=== PATIENT | male | born 1955 | race Caucasian/White ===

== ENCOUNTER 2023-06-27 12:34 | Outpatient (CLI) | payer MEDICARE, SELFPAY ==
--- NOTE | ~2023-06-27 | CT_ITS ---
CT Scan of the Chest without Contrast: Clinical Indication: Lung cancer screening, nicotine dependence Technique: Contiguous sections were acquired throughout the chest without intravenous contrast. Dose reduction technique was used on this scan by utilizing automated exposure control and iterative recon struction technique. The dose-length product (DLP) was 133.13 mGy-cm. Findings: There is no evidence of any significant mediastinal, hilar or axillary lymphadenopathy. Coronary laurel ry calcifications are present. There is no evidence of pleural or pericardial effusion. 7 mm nodule noted along the right minor fissure (axial image 56). 3 mm pleural-based nodule at the le ft lung base (axial image 95). Images through the upper abdomen reveal no abnormalities. Impression: Lung RADS 3: Probably benign. Six-month follow-up screening CT recommended. Reviewed, dictated and finalized at [facility]. Impression: Lung RADS 3: Probably benign. Six-month follow-up screening CT recommended.
== END 2023-06-27 12:35 | disposition home or self-care (01) ==
PROVIDERS: PCP Family Medicine; Visit Provider Family Medicine
DX: Z12.2 Encounter for screening for malignant neoplasm of respiratory organs (principal); Z87.891 Personal history of nicotine dependence
CPT/HCPCS: 71271

== ENCOUNTER 2024-08-12 00:29 | Day surgery (SDC) | payer MEDICARE, SELFPAY ==
[2024-08-04 09:49] VITALS: BMI 28.9
[2024-08-12 13:05] VITALS: BP 148/87; PULSE 57; RESP 15; TEMP 36.6; O2SAT 99
[2024-08-12] MEDS: LACTATED RINGERS 1,000 ML 150 ML IV CONT (13:12)
--- NOTE | 2024-08-12 13:46 | WPDANESEPPF ---
Anes - Initial Pre Proc Eval Procedure: Operation Date: 08/12/24 14:00 Proposed Procedures p Screening Colonoscopy - Dale Dave MD Date/Time: 08/12/24 13:46 Surgeon: Dale Dave MD Pre Op Diagnosis: Screening Patient Data Age: 69 Gender: M Height: 1.73 m Weight: 84.5 kg Last Vital Signs Temp 36.6 C 08/12/24 13:05 Pulse 57 L 08/12/24 13:05 Resp 15 08/12/24 13:05 BP 148/87 H 08/12/24 13:05 Pulse Ox 99 08/12/24 13:05 O2 Del Method Room Air 08/12/24 13:05 Allergies Allergy/AdvReac Type Severity Reaction Status Date / Time No Known Allergies Allergy Unknown Verified 08/12/24 13:01 Home Medications ?Medication ?Instructions ?Recorded ?Confirmed ?Type No Home Medications 08/12/24 08/12/24 History Patient hx anesthesia problems: none Family hx anesthesia problems: none Results Review: All pre-operative results and documents have been reviewed as part of the pre-operative evaluation. [facility] Past Medical History Medical History IFG (impaired fasting glucose) Acute appendicitis with perforation, localized peritonitis, and abscess, without gangrene Elevated blood-pressure reading, without diagnosis of hypertension Family history of colon cancer Pure hyperglyceridemia Umbilical hernia without obstruction or gangrene Surgical History Surgical History History of umbilical hernia repair Family History Family History Mother Carcinoma of colon Social History Social History Smoking packs per day: 0.5 Smoking cigarettes per day: 10.0 Smoking status: Current some day smoker Tobacco type: cigarettes Smoking end date: 03/11/16 Alcohol intake: current Substance use: never Substance use type: does not use Gender identity (if verbalized by the patient): Male Anes - Eval Final PreProcedure Day of Procedure 08/12/24 13:46 Patient weight: overweight Heart: regular rate and rhythm Lungs: clear to auscultation Airway: Mallampati scale class II Neurological: alert and oriented Last oral intake: >/= 8 hours ASA classification: II Emergent: no Anesthetic plan: proceed Anesthesia type and monitoring: general GIVS and standard monitoring Results Review: All pre-operative results and documents have been reviewed as part of the pre-operative evaluation. Informed Consent: The patient's anesthetic plan and its attendant risks and benefits were discussed with the patient/family/POA. Questions were solicited and answers provided to the satisfaction of the patient/family/POA.
--- NOTE | 2024-08-12 14:01 | P.HP_ITS ---
H&P: HPI History of Present Illness Date/Time: 08/12/24 14:01 Chief Complaint: Family history of colon cancer Narrative: This patient has family history of colorectal cancer. his mother had when she was in her late 60s Review of Systems Review of Systems: All systems reviewed & are unremarkable except as noted in HPI and below [facility] Past Medical History Medical History (Updated 08/12/24 @ 14:02 by Dale Dave MD) IFG (impaired fasting glucose) Acute appendicitis with perforation, localized peritonitis, and abscess, without gangrene Elevated blood-pressure reading, without diagnosis of hypertension Family history of colon cancer Pure hyperglyceridemia Umbilical hernia without obstruction or gangrene Surgical History Surgical History History of umbilical hernia repair Family History Family History Mother Carcinoma of colon Social History Social History Smoking packs per day: 0.5 Smoking cigarettes per day: 10.0 Smoking status: Current some day smoker Tobacco type: cigarettes Smoking end date: 03/11/16 Alcohol intake: current Substance use: never Substance use type: does not use Gender identity (if verbalized by the patient): Male Meds Home Medications and Allergies Home Medications ?Medication ?Instructions ?Recorded ?Confirmed ?Type No Home Medications 08/12/24 08/12/24 History Allergies Allergy/AdvReac Type Severity Reaction Status Date / Time No Known Allergies Allergy Unknown Verified 08/12/24 13:01 Vital Signs Vital Signs - 24 hr 08/12/24 13:05 Temperature 97.8 F Pulse Rate 57 L Respiratory Rate 15 Blood Pressure 148/87 H Pulse Oximetry 99 Oxygen Delivery Room Air Exam Const: General: cooperative and healthy appearing Resp: Effort & Inspection: normal respiratory effort and able to speak in complete sentences Auscultation: clear to auscultation bilaterally Cardio: Rate: regular rate Rhythm: regular rhythm GI: Inspection: normal to inspection GI Palp: No No hepatosplenomegaly present Auscultation: normal bowel sounds Rectal Exam: deferred Skin: General skin exam: normal color Psych: Appearance: grossly normal Mental Status: mental status grossly normal Assessment and Plan Assessment and plan (1) Family history of colon cancer: Code(s): Z80.0 - Family history of malignant neoplasm of digestive organs Status: Acute Assessment and Plan: The patient is deemed a good candidate for the procedure. Consent signed. Will proceed.
[2024-08-12] MEDS: SIMETHICONE ORAL SUSPENSION 20 MG/0.3 ML 30 ML BOTTLE 0.6 ML IRRIGATION (14:14)
[2024-08-12 14:25] VITALS: BP 131/85; PULSE 52; RESP 16; O2SAT 97
[2024-08-12 14:35] VITALS: BP 139/89; PULSE 56; RESP 19; O2SAT 99
[2024-08-12 14:45] VITALS: BP 152/89; PULSE 55; RESP 21; O2SAT 98
== END 2024-08-12 14:53 | disposition home or self-care (01) ==
PROVIDERS: PCP Family Medicine; Referring Provider Student in an Organized Health Care Education/Training Program; Visit Provider Internal Medicine Gastroenterology
PROC: 0DJD8ZZ Inspection of Lower Intestinal Tract, Via Natural or Artificial Opening Endoscopic (ICD-10-PCS; CPT 45378; principal; 2024-08-12 14:00)
DX: Z12.11 Encounter for screening for malignant neoplasm of colon (principal); R03.0 Elevated blood-pressure reading, without diagnosis of hypertension; E78.1 Pure hyperglyceridemia; F17.210 Nicotine dependence, cigarettes, uncomplicated; Z98.890 Other specified postprocedural states; Z80.0 Family history of malignant neoplasm of digestive organs
CPT/HCPCS: G0105; J2003; J2704; J7120

== ENCOUNTER 2024-09-02 17:53 | Emergency (ER) | payer MEDICARE, SELFPAY ==
[2024-09-02 18:02] VITALS: BP 147/80; PULSE 72; RESP 16; TEMP 36.8; O2SAT 98
--- NOTE | 2024-09-02 18:08 | ED_ITS ---
HPI - Ear Problem General Chief complaint: Ear Stated complaint: ear clog/jaw pain Time Seen by Provider: 09/02/24 18:07 Source: patient and RN notes reviewed Mode of arrival: ambulatory Limitations: no limitations History of Present Illness HPI Narrative: 69-year-old male presents with concern for an earache on the left side that is radiating down the left jaw. Reports he has been using ED bra straps, Q tips to try to improve it. He reports he has had decreased hearing in that ear. He denies cold symptoms. He reports some drainage from the ear. MD Complaint: ear pain Related Data Allergies Allergy/AdvReac Type Severity Reaction Status Date / Time No Known Allergies Allergy Unknown Verified 09/02/24 18:06 Review of Systems Review of Systems: CONSTITUTIONAL: Denies malaise, chills, sweats, or fever. EYES: Denies visual changes, redness, or discharge. ENT: Denies rhinorrhea, congestion, sinus pain, and sore throat. Reports left ear pain that radiates to the jaw CARDIOVASCULAR: Denies chest pain, palpitations, or edema. RESPIRATORY: Denies cough. Denies dyspnea. GASTROINTESTINAL: Denies abdominal pain, nausea, vomiting, diarrhea SKIN: Denies rash or itching. MUSCULOSKELETAL: Denies myalgia. NEUROLOGIC: Denies headache. All systems reviewed & are unremarkable except as noted in HPI and below PMFSH Past Medical History Medical History (Updated 09/02/24 @ 18:14 by Abby Malone NP) IFG (impaired fasting glucose) Acute appendicitis with perforation, localized peritonitis, and abscess, without gangrene Elevated blood-pressure reading, without diagnosis of hypertension Family history of colon cancer Pure hyperglyceridemia Umbilical hernia without obstruction or gangrene Surgical History Surgical History History of umbilical hernia repair Family History Family History Mother Carcinoma of colon Social History Social History Smoking packs per day: 0.5 Smoking cigarettes per day: 10.0 Years smoked: 45 Smoking pack-years: 22.50 Smoking status: Current some day smoker Tobacco type: cigarettes Smoking end date: 03/11/16 Alcohol intake: current Drinks per week: 10 Substance use: never Substance use type: does not use Living arrangements: with family Gender identity (if verbalized by the patient): Male Spiritual care concerns: No Comments At time of signature, agree with nursing past medical, surgical, social and family history. There is no relevant family history pertinent to the presenting complaint Exam Narrative: GENERAL: Well-appearing, well-nourished, and in no acute distress. HEAD: Normocephalic EYES: PERRLA, conjunctivae clear ENT: Nares clear, turbinates edematous, clear discharge. Mucous membranes moist. TM pearly florentino with sharp light reflex on the right, dull on the left; left tragal tenderness with the EAC erythema, edema and drainage. Oropharynx not erythematous without lesions. Tonsils not enlarged and without exudate, no drooling, no hoarseness, no trismus, uvula midline. NECK: Supple. No lymphadenopathy CHEST: Clear to auscultation, breath sounds equal. No wheezing, rhonchi, rales, or stridor. No respiratory distress, speaks in full sentences. HEART: Regular rate and rhythm. No murmur heard. SKIN: Warm, dry, no rash. NEURO: Alert and oriented x3. PSYCH: Normal mood and affect Course Course Emergency Course: Patient is aware of diagnosis, understands and agrees to treatment plan. Anticipatory guidance given. Patient agrees to follow-up as directed and is aware of reasons to seek care at the emergency department. Portions of this record may have been created with voice recognition software Level of Care: Express Care Visit Vital Signs Vital signs: Vital Signs Temperature 98.3 F 09/02/24 18:02 Pulse Rate 72 09/02/24 18:02 Respiratory Rate 16 09/02/24 18:02 Blood Pressure 147/80 H 09/02/24 18:02 Pulse Oximetry 98 09/02/24 18:02 Oxygen Delivery Room Air 09/02/24 18:02 Temperature 98.3 F 09/02/24 18:02 Pulse Rate 72 09/02/24 18:02 Respiratory Rate 16 09/02/24 18:02 Blood Pressure 147/80 H 09/02/24 18:02 Pulse Oximetry 98 09/02/24 18:02 Oxygen Delivery Room Air 09/02/24 18:02 Reviewed. Medical Decision Making MDM Narrative Medical decision making narrative: I evaluated this in the [facility] care. History is obtained from patient who is an independent historian and physical exam was performed.? Available medical records were reviewed. ? Exam findings and relevant testing show no acute concerns or changes; patient is non-toxic appearing and is in no distress. Differential diagnosis considered: Hodges virus, strep pharyngitis, allergic rhinitis, upper respiratory tract infection, sinusitis, rhinosinusitis, nasopharyngitis. viral pharyngitis, otitis media, otitis externa, otitis effusion, cerumen impaction, foreign body. Exam findings show no acute concerns or changes; patient is non-toxic appearing and is in no distress. Patient is appropriate for outpatient treatment and follow-up. ? Differential diagnosis and treatment plan were discussed with the patient. Patient agrees with discussion and after shared medical decision making agrees with plan of care. All questions were answered to the patient's satisfaction. Patient is appropriate for outpatient treatment and follow-up. Vital Signs Vital Signs: Vital Signs Temperature 98.3 F 09/02/24 18:02 Pulse Rate 72 09/02/24 18:02 Respiratory Rate 16 09/02/24 18:02 Blood Pressure 147/80 H 09/02/24 18:02 Pulse Oximetry 98 09/02/24 18:02 Oxygen Delivery Room Air 09/02/24 18:02 Temperature 98.3 F 09/02/24 18:02 Pulse Rate 72 09/02/24 18:02 Respiratory Rate 16 09/02/24 18:02 Blood Pressure 147/80 H 09/02/24 18:02 Pulse Oximetry 98 09/02/24 18:02 Oxygen Delivery Room Air 09/02/24 18:02 Critical Care Time Critical Care Time Critical Care Time: No Discharge Plan Discharge Clinical Impression: Otitis externa Patient Disposition: Home Condition: Stable Instructions: How to Use Ear Drops (ED) Additional Instructions: 1) Please follow-up with your primary care doctor. 2) If you have any urgent concerns please go to the ER. 3) Please take medications as prescribed and continue taking your home medications as usual. 4) Please read and follow information included in discharge instructions. Patient Language: Kyrgyz Prescriptions: New ofloxacin 0.3 % drops 5 drp LEFT EAR DAILY 7 Days Qty: 10 0RF Follow-up/Referrals: Zaheer Webb MD [Primary Care Provider] - Time of Disposition: 18:13
== END 2024-09-02 18:19 | disposition home or self-care (01) ==
PROVIDERS: Emergency Provider Nurse Practitioner; PCP Family Medicine
DX: H60.92 Unspecified otitis externa, left ear (principal); F17.210 Nicotine dependence, cigarettes, uncomplicated
CPT/HCPCS: 99213; G0463